=== PATIENT | male | born 1945 | race Caucasian/White ===

== ENCOUNTER 2016-12-27 09:37 | Day surgery (SDC) | payer MEDICARE, OTHER ==
[~2016-12-27] VITALS: Ht 185.4 cm; Wt 86.2 kg
[~2016-12-27 09:37] MED LIST: ASPI-973 PO; PSYL1PAC10 PO; SIMV40TA5 PO; Sodium Chloride LOK Flush 10 mL Syringe IV PRN; fentaNYL-PF 50 mCg/mL 2 mL Inj IVPUSH PRN
[2016-12-27 10:02] VITALS: BP 139/90; PULSE 75; RESP 16; O2SAT 98
[2016-12-27] MEDS: 0.9% Sodium Chloride 1,000 ML IV PRN ×2 (10:44→11:18)
[2016-12-27 11:28] VITALS: BP 120/77; PULSE 65; RESP 12; O2SAT 96
[2016-12-27 11:38] VITALS: BP 112/67; PULSE 63; RESP 14; O2SAT 95
[2016-12-27 11:48] VITALS: BP 112/75; PULSE 59; RESP 12; O2SAT 98
[2016-12-27 11:58] VITALS: BP 105/65; PULSE 65; RESP 14; O2SAT 98
--- NOTE | 2016-12-27 20:42 | ENDO ---
[address] [address] ENDOSCOPY PROCEDURE PATIENT: LUDIVINA WALTER : 1945 MR#: [id number] ADMIT: 12/27/2016 JOB ID: [id number] DATE: 12/27/2016 PRIMARY PROVIDER: Stephania Gomez MD PROCEDURE: 1. Colonoscopy. 2. Hot snare polypectomy. 3. Cold forceps polypectomy. INDICATIONS: A 71-year-old male with a personal history of adenomatous colon polyp returning for surveillance. EQUIPMENT: PCF H 180 AL. SEDATION: 1. 7 mg Versed. 2. 150 mcg fentanyl. COMPLICATIONS: None identified. BOWEL PREPARATION: Fair, adequate exam. PROCEDURE INFORMATION: After the risks and benefits were explained, written and verbal informed consent was obtained. The patient was brought into the endoscopy suite and placed into the left lateral decubitus position. Sedation was achieved using the above-stated medications with the addition of oxygen via nasal cannula. A digital rectal examination was accomplished. No significant pathology appreciated. The scope was introduced into the rectum and advanced under direct visualization to the cecum as identified by the appendiceal orifice and ileocecal valve. The scope was slowly withdrawn to carefully examine the mucosa for any defects or lesions. Retroflexed views were accomplished in the rectum. The colon was decompressed. The scope removed from the patient who tolerated the procedure well. FINDINGS: In the ascending colon, there were two approximately 6 mm polyps removed with hot snare. In the transverse, there was a diminutive polyp removed with cold forceps. All of these were grouped together as "colon polyps." Otherwise, the patient had rather extensive diverticulosis through the sigmoid region. Retroflexed views from within the rectum were unremarkable. ENDOSCOPIC DIAGNOSES: 1. Diverticulosis. 2. Internal and external, nonbleeding, nonthrombosed hemorrhoids (not mentioned above). 3. Colon polyps. RECOMMENDATIONS: 1. Await histopathology. 2. If all of these are returned with adenomatous features, repeat colonoscopy in three years. Otherwise, a five year followup would be fine.
--- NOTE | 2016-12-28 11:28 | PATH ---
SURGICAL PATHOLOGY Attending Physician:Milan Hernandez CASE STATUS: Signed Out PATIENT NAME: LUDIVINA WALTER PID: [id number] : 1945 DATE COLLECTED:12/27/2016 19:54 SPECIMEN: Colon, Biopsy CLINICAL HISTORY: COLON POLYPS 1). COLON POLYPS FINAL DIAGNOSIS: Colon Polyps: Sessile serrated adenomas, two. Tubular adenoma, one. ICD10 D12.6 GROSS DESCRIPTION: The specimen is received in one formalin filled container labeled with the patient's name, sublabeled "colon polyps" and consists of 5 portions of tissue which aggregate to 0.6 x 0.5 x 0.3 CM. The specimen is entirely submitted in one cassette. 12/27/2016 DAC MICRO DESCRIPTION: Please see diagnosis. ICD-9 CODES: CPT CODES: 1: 55728 Electronically Signed Out Annie Leonard MD [facility] Pathology [facility] [address], [place] [address] Technical component performed at [facility], [facility] [address], [address]
== END 2016-12-27 23:59 | disposition home or self-care (01) ==
LOC: END 09:37
PROVIDERS: ATTEND Internal Medicine Gastroenterology
DX: Z12.11 Encounter for screening for malignant neoplasm of colon (principal); D12.2 Benign neoplasm of ascending colon; D12.3 Benign neoplasm of transverse colon; K64.8 Other hemorrhoids; K64.4 Residual hemorrhoidal skin tags; Z86.010 Personal history of colon polyps; K57.30 Diverticulosis of large intestine without perforation or abscess without bleeding